=== PATIENT | female | born 1970 | race Asian ===

== ENCOUNTER 2016-04-12 15:30 | Outpatient (CLI) | payer BC ==
[~2016-04-12 15:30] MED LIST: ALPR0.5T24 PO; CELEXA10 MG PO; CYCL10TA35 PO; HYDR25TA60 PO; MELOXICAM15 MG OR; MELOXICAM7.5 MG OR; NORGEST/ETH1 OR; PAXIL10 MG PO; TIROSINT50 MCG OR; VITAMIN D OR
== END 2016-04-12 20:19 | disposition home or self-care (01) ==
LOC: MAMMO 15:30
DX: Z12.31 Encounter for screening mammogram for malignant neoplasm of breast (principal)
CPT/HCPCS: G0202-TC

== ENCOUNTER 2016-05-25 21:29 | Emergency (ER) | payer BC ==
[~2016-05-25] VITALS: Ht 167.6 cm; Wt 127.0 kg
[2016-05-25 21:40] VITALS: BP 199/118
[2016-05-25 22:22] LABS: PLATELET COUNT 340 K/uL (152-353)
[2016-05-25 22:29] LABS: POTASSIUM 3.5 mmol/L (3.6-5.2)
[2016-05-25 23:07] VITALS: TEMP 98.4
== END 2016-05-25 23:20 | disposition home or self-care (01) ==
LOC: ED 21:29
DX: K29.70 Gastritis, unspecified, without bleeding (principal); B96.81 Helicobacter pylori [H. pylori] as the cause of diseases classified elsewhere
CPT/HCPCS: 80053; 81000; 82150; 83690; 85027; 86318; 96374; 99283; J1885

== ENCOUNTER 2017-08-16 11:32 | Outpatient (CLI) | payer BC | END 2017-08-16 21:54 | disposition home or self-care (01) | LOC: MAMMO 11:32 | DX: Z12.31 Encounter for screening mammogram for malignant neoplasm of breast (principal) ==

== ENCOUNTER 2018-09-20 19:01 | Emergency (ER) | payer BC ==
[~2018-09-20] VITALS: Ht 167.6 cm; Wt 132.5 kg
[2018-09-20 20:31] LABS: PLATELET COUNT 291 K/uL (152-353)
[2018-09-20 20:36] LABS: POTASSIUM 3.5 mmol/L (3.6-5.2)
[2018-09-21 00:46] VITALS: BP 153/101; TEMP 98
== END 2018-09-21 00:48 | disposition short-term general hospital (02) ==
LOC: ED 19:01
PROVIDERS: Emergency Medicine Emergency Medical Services
DX: G93.2 Benign intracranial hypertension (principal); R51 Headache
CPT/HCPCS: 80053; 85027; 96374; 99285; J1885

== ENCOUNTER 2019-01-16 08:13 | Outpatient (CLI) | payer BC | END 2019-01-16 19:21 | disposition home or self-care (01) | LOC: CT 08:13 | DX: R10.31 Right lower quadrant pain (principal) | CPT/HCPCS: 36415; 82565; 84520; Q9963 ==

== ENCOUNTER 2019-03-12 08:20 | Outpatient (CLI) | payer BC | END 2019-03-12 20:10 | disposition home or self-care (01) | LOC: US 08:20 | DX: I10 Essential (primary) hypertension (principal); R51 Headache; E78.5 Hyperlipidemia, unspecified; E66.9 Obesity, unspecified ==

== ENCOUNTER 2019-04-06 11:03 | Outpatient (CLI) | payer BC | END 2019-04-06 19:36 | disposition home or self-care (01) | LOC: US 11:03 | DX: E04.1 Nontoxic single thyroid nodule (principal) ==

== ENCOUNTER 2019-09-06 12:27 | Outpatient (CLI) | payer BC, OTHER | END 2019-09-06 22:53 | disposition home or self-care (01) | LOC: LAB 12:27 | DX: U07.1 COVID-19 (principal); J32.0 Chronic maxillary sinusitis | CPT/HCPCS: 87635; G2023; U00003 ==

== ENCOUNTER 2020-04-15 11:06 | Outpatient (CLI) | payer BC, OTHER | END 2020-04-15 19:40 | disposition home or self-care (01) | LOC: LAB 11:06 | PROVIDERS: ATTEND Internal Medicine | DX: Z20.828 Contact with and (suspected) exposure to other viral communicable diseases (principal) | CPT/HCPCS: 87635; U0003 ==

== ENCOUNTER 2020-05-14 19:52 | Emergency (ER) | payer BC ==
[~2020-05-14] VITALS: Ht 167.6 cm; Wt 129.3 kg
[2020-05-14 21:10] VITALS: BP 118/88; TEMP 98.2
== END 2020-05-14 21:10 | disposition home or self-care (01) ==
LOC: ED 19:52
DX: M79.18 Myalgia, other site (principal); M25.512 Pain in left shoulder; M79.622 Pain in left upper arm
CPT/HCPCS: 96372; 99282; 99283; J1885

== ENCOUNTER 2020-11-12 13:10 | Outpatient (CLI) | payer BC, OTHER | END 2020-11-12 20:39 | disposition home or self-care (01) | LOC: LAB 13:10 | PROVIDERS: ATTEND Internal Medicine | DX: R52 Pain, unspecified (principal); Z11.52 Encounter for screening for COVID-19 | CPT/HCPCS: 87502; 87635; G2023; U0003 ==

== ENCOUNTER 2021-03-23 12:32 | Outpatient (CLI) | payer BC, OTHER | END 2021-03-23 19:04 | disposition home or self-care (01) | LOC: RAD 12:32 → EDSTATUS 12:41 → RAD 19:04 | PROVIDERS: ATTEND Internal Medicine | DX: U07.1 COVID-19 (principal) ==